=== PATIENT | male | born 1970 | race Caucasian/White ===

== ENCOUNTER 2022-08-03 14:40 | Outpatient (CLI) | payer SELFPAY ==
[2022-08-03 13:56] LABS: Creatinine Urine 187.5 mg/dL
[2022-08-03 14:17] LABS: Chloride* 104 mmol/L (96-114); Potassium* 4.1 mmol/L (3.6-5.1); Sodium* 136 mmol/L (135-149)
[2022-08-03 14:19] LABS: Cholesterol* 216 mg/dL (90-199)
[2022-08-03 14:20] LABS: Blood Urea Nitrogen* 20 mg/dL (7-30); Calcium* 8.9 mg/dL (8.4-10.6); Carbon Dioxide* 22 mmol/L (20-32); Creatinine* 0.8 mg/dL (0.5-1.5); Estimated Glomerular Filt Rate 106 ml/min; Glucose* 309 mg/dL (60-115); Triglycerides* 186 mg/dL (40-149)
[2022-08-03 14:21] LABS: HDL Cholesterol* 53 mg/dL (>=40); LDL Cholesterol Calculated 126 mg/dL (<100)
[2022-08-03 14:25] LABS: PSA Screen* 1.11 ng/mL (0.10-4.00)
[2022-08-03 14:37] LABS: Microalbumin Creatinine Ratio 130 mg/g (0-30); Microalbumin Urine 25 mg/dL
== END 2022-08-03 14:41 | disposition home or self-care (01) ==
PROVIDERS: PCP Family Medicine; Visit Provider Family Medicine
DX: Z00.00 Encounter for general adult medical examination without abnormal findings (principal); E11.9 Type 2 diabetes mellitus without complications; Z12.5 Encounter for screening for malignant neoplasm of prostate; Z13.6 Encounter for screening for cardiovascular disorders
CPT/HCPCS: 80048; 80061; 82043; 82570; 84153

== ENCOUNTER 2024-05-12 08:10 | Outpatient (CLI) | payer OTHER, SELFPAY ==
--- OUTSIDE RECORDS SUMMARY | 2024-05-16 14:36 | XMS_ITS | Data Portability ---
Author Organization [place] [facility], [facility] Address [address] [place] [address] Assessment No assessment recorded. Plan of Treatment Reminders Order Date Submit Date Provider Last Modified By Organization Details Last Modified Time Details Appointments None recorded. Lab urinalysis , dipstick 2021 022 [facility], [address], [place], [address], 05:36:00 Referral None recorded. Procedures None recorded. Surgeries None recorded. Imaging None recorded. Medication Orders None recorded. Patient TargetsNo targets recorded. Patient InstructionsNo instructions recorded. Reason for Referral None Reported. Results Created Date Observation Date Name Description Value Unit Range Abnormal Flag Note LastModifiedBy Organization Detail LastModifiedTime 07/25/19 22 07/25/2021 [facility] DIP CS ADVAN TUS color -advantus YELLOW yellow Not Available [facility] [address], [place], [address], 07/25/2021 11:28:39 07/25/19 22 07/25/2021 UA DIP CS ADVAN TUS appearance -advantus CLEAR clear Not Available [facility] [address], [place], [address], 07/25/2021 11:28:39 07/25/19 22 07/25/2021 UA DIP CS ADVAN TUS glucose -advantus NEGATI VE mg/dL negati ve Not Available [facility] [address], [place], [address], 07/25/2021 11:28:39 07/25/19 22 07/25/2021 UA DIP CS ADVAN TUS bilirubin -advantus NEGATI VE negati ve Not Available [facility] [address] [place] [address] [address], [place], [address], 07/25/2021 11:28:39 07/25/19 22 07/25/2021 UA DIP CS ADVAN TUS ketones -advantus NEGATI VE mg/dL negati ve Not Available [facility] [address] [place] [address] [address], [place], [address], 07/25/2021 11:28:39 07/25/19 22 07/25/2021 UA DIP CS ADVAN TUS sp. gravity -advantus >=1.03 0 1.010- 1.025 Not Available [facility] [address] [place] [address] [address], [place], [address], 07/25/2021 11:28:39 07/25/19 22 07/25/2021 UA DIP CS ADVAN TUS pH -advantus 5.0 5.0-8. 0 Not Available [facility] [address] [place] [address] [address], [place], [address], 07/25/2021 11:28:39 07/25/19 22 07/25/2021 UA DIP CS ADVAN TUS protein -advantus NEGATI VE mg/dL negati ve Not Available [facility] [address] [place] [address] [address], [place], [address], 07/25/2021 11:28:39 07/25/19 22 07/25/2021 UA DIP CS ADVAN TUS urobilinogen -advantus 0.2 normal Not Available [facility] [address] [place] [address] [address], [place], [address], 07/25/2021 11:28:39 07/25/19 22 07/25/2021 UA DIP CS ADVAN TUS nitrites -advantus NEGATI VE negati ve Not Available [facility] [address] [facility] [address], [place], [address], 07/25/2021 11:28:39 07/25/19 22 07/25/2021 UA DIP CS ADVAN TUS blood -advantus NEGATI VE negati ve Not Available [facility] [address] [facility] [address], [place], [address], 07/25/2021 11:28:39 07/25/19 22 07/25/2021 UA DIP CS ADVAN TUS leukocytes -advantus NEGATI VE negati ve Not Available [facility] [address] [facility], [place], [address], 07/25/2021 11:28:39 07/25/19 22 07/25/2021 [facility] DIP CS [facility] performed by [facility] Not Available [facility] [address] [place] [address] [address], [place], [address], 07/25/2021 11:28:39 07/25/19 22 07/25/2021 UA DIP CS ADVAN TUS total urine volume (mL) 80 /mL ----- ----- ----- ----- ----- ----- ----- ----- ----- ----- ----- ----- ----- ----- ---- *Plea note the follo wing minim um quant ities for addit ional urine testi ng: - Atypi cals: 3 mL - Cytol ogy: 20 mL - GC/CH : 2 mL - FISH: 30 mL - Atypi cals w/ GC/CH : 5 mL - Cytol ogy PLUS FISH: 50 mL - Urine Cultu re: 3 mL ----- ----- ----- ----- ----- ----- ----- ----- ----- ----- ----- ----- ----- ----- ---- Not Available [facility] [address], [place], [address], 07/25/2021 11:28:39 Result Notes None recorded. Medical Equipment None Reported. Allergies No known drug allergies Medications Name Sig Start Date Stop Date Status Note LastModified by Organization Details LastModified Time lisinopril Don t know 1/day active Not Available Not Available No t Available metformin don t know 1/day active Not Available Not Available No t Available Vitals Date Recorded Body mass index (BMI) Body weight Body height Provider Name and Address Organization Details Last Updated DateTime 07/25/2021 39.2 kg/m2 172274.3571 9286 g 167.64 cm Not Available Health Note 07/25/2021 10:49:53 Social History Question Answer Notes LastModified by Organizat ion Details LastModified Time Tobacco Smoking Status Never Smoker Not Available Health Note 07/21/2021 14:40:24 What Is Your Level Of Alcohol Consumption? Occasional [email or web address] Information not available 07/21/2021 What Is Your Level Of Caffeine Consumption? Moderate [email or web address] Information not available 07/21/2021 How Much Tobacco Do You Chew? None [email or web address] Information not available 07/21/2021 Do You Or Have You Ever Used E-cigarettes Or Vape? Never Used Electronic Cigarettes [email or web address] Information not available 07/21/2021 What Was The Date Of Your Most Recent Tobacco Screening? 07/21/2021 [email or web address] Information not available 07/21/2021 What Is Your Relationship Status? Single [email or web address] Information not available 07/21/2021 Do You Or Have You Ever Used Smokeless Tobacco? Never Used Smokeless Tobacco [email or web address] Information not available 07/21/2021 Do You Use Any Illicit Or Recreational Drugs? No [email or web address] Information not available 07/21/2021 Sex: Male Functional Status None recorded. Mental Status None recorded. Family History Relationship Description Onset Age of this Age Resolved Age Notes LastModified by Organization Details LastModified Time Maternal Grandfather Family history of cancer of colon [email or web address] Not available 2021 14:40:21 Father Family history of diabetes mellitus [email or web address] Not available 2021 14:40:21 Father Family history of renal stone [email or web address] Not available 06/29 14:40:21 Medical History Condition Response High Blood Pressure Y Kidney Stones N Depression Y Lung Disease N GERD/Acid Reflux N Diabetes Y Sexually Transmitted Infection N Bleeding Disorder N Cancer N High Cholesterol N Heart Disease N Immunizations Vaccine Type Date Status Provider Name and Address Organization Details Recorded Time pneumococcal, unspecified formulation 07/07/2021 completed Not Available Health Note 07/21/2021 14:40:26 influenza, unspecified formulation 05/09/2021 completed Not Available Health Note 07/21/2021 14:40:26 SARS-COV-2 (COVID-19) vaccine, UNSPECIFIED 10/26/2020 completed Not Available Health Note 07/21/2021 14:40:26 Past Encounters Encounter ID Performer Location Encounter Start Date Encounter Closed Date Diagnosis/Indication Diagnosis SNOMED-CT Code Diagnosis ICD10 Code [id number] Rodrigo Naqvi MD [facility] [address] [place] [address],[facility] e [address] [place] [phone] 07/25/2021 10:49:49 07/28/2021 13:39:21 Pain of left testicle [id number] N50.812 Health Concerns Section Related Observation LastModified by Organization Detai ls LastModified Time None Recorded Concern Status LastModified by Organization Details LastModified Time None Recorded Advance Directives Directive None Recorded Payers Encounter Date Sequence Insurance Name Policy Number Policy Martínez Covered Member ID Martínez Member ID Guarantor Name 07/25/2021 1 [employer] [id number] Josiah Carver [id number] Josiah Carver Notes Date Note Type Note Provider Name and Address Organization Details Recorded Time 07/25/2021 text/html Chief complaint:reason listed below ongoing left testiclular pain and sensitivity.was told years ago had left varicocele. pain ins crotum left side. senstive to light touch in a specific spot.on and off pain for years. always present. coms and goes. very sensitive.does not remmber prior injury. prior scrotal us but years ago. Other Urological Concern:Other Urological Concern:varicocel e, epididymitisBegan :20 Years agoFrequency:Daily Associated symptoms:pain in veins inside scrotumWorse with:pain on contactSeverity:Mo derate Progression: Staying the same, getting worse overall Rodrigo Naqvi MD [address] [facility] [facility], [place], [address], [facility] 07/26/2021 06:30:17
== END 2024-05-12 08:11 | disposition home or self-care (01) ==
LOC: NFLDREF 05-16 14:34
PROVIDERS: PCP Family Medicine; Referring Provider Family Medicine; Visit Provider Family Medicine
DX: E11.9 Type 2 diabetes mellitus without complications (principal); I10 Essential (primary) hypertension; E78.00 Pure hypercholesterolemia, unspecified; E66.9 Obesity, unspecified; D64.9 Anemia, unspecified; Z12.5 Encounter for screening for malignant neoplasm of prostate
CPT/HCPCS: 80053; 80061; 82043; 82570; G0103